=== PATIENT | male | born 1935 | race Caucasian/White ===

== ENCOUNTER 2017-09-14 09:00 | Outpatient (RCR) | payer SELFPAY ==
--- NOTE | 2017-07-21 12:37 | HP.PTEVAL_ITS ---
Patient's Visit Information IDA ASCENCIO is a 81 year old M referred to Physical Therapy by MD HARJIT Dye with a diagnosis of L CARLOS. Date of Evaluation: 07/21/17 Physical Therapist: Papi Kramer PT, - Visit Plan Frequency: 2-3x /Week Duration: 4-6 Weeks Plan: L LE strengthening, balance and proprio, core stab ex's, gait training, nustep, and HEP. CP for pain - Subjective Subjective: DOS: 01/2017. Pt reports he first had a L CARLOS in 1989. 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 Pt reports he had R CARLOS in the past as well. Pt notes his R hip is doing well, but his L hip continues to hurt. Pt notes he also notices a lack of balance and weakness that exists. Pt reports no Prior falls as a result of his hip surgery. Pt reports sleep diff secondary to pain. Pt reports he has stairs at home, and must negotiate them one step at a time. Pt reports he was doing better after the surgery, but the weather over the winter has limited his ability to ambulate much. Pt notes he has burning in his feet, but no other T or N. 3/10 pain at rest, 8/10 at worst (stairs) - Pain L hip Pain Intensity (Out of 10): 3 Pain Intensity Range: 8 - Objective Neuro: B LE sensation is WNL to light touch. B pat tendon reflex= 1/3. MMT: R LE is 5/5 throughout. L LE is 4-/5 throughout. Gait: Pt is able to ambulate 680 ' with cane until feeling fatigued in hips. Balance: No LOB while ambulating this date. - Goals Goal 1:: Decrease L hip pain x 50% to aid with sleep Goal Time Frame: 4-6 Weeks Goal 2:: Increase L hip strength x 1 grade to aid with stair negotiation Goal Time Frame: 4-6 Weeks Goal 3:: Pt will be able to ambulate greater than 1000 feet in order to increase his ability to ambulate around [place] with greater ease Goal Time Frame: 4-6 Weeks Goal 4:: I with HEP Goal Time Frame: 4-6 Weeks - Rehabilitation Potential Physical Therapy Diagnosis: L hip pain, weakness, and limited gait mobility secondary to L CARLOS Rehabilitation Potential: Good - Anticipated Interventions Patient/Client Instruction: Educate patient on: Condition, Plan of Care For the Purpose of:: To improve self management Therapeutic Exercise to Include: Strength training, Endurance training, Balance training, Gait and locomotor training, Dynamic Lumbar Stabilization For the Purpose of:: To decrease pain, To increase ROM, To improve muscle performance and motor function Cryotherapy (ice pack, ice massage): Yes For the Purpose of:: To decrease pain Thank you for the opportunity to evaluate your patient. For Medicare and Medicare HMO plans, please review the plan of care and approve it. It will need to be FAXED BACK to us at [phone] for Medicare purposes. Please let me know if there are questions or concerns regarding this plan of care. Physician Signature: Date:
--- NOTE | 2017-10-18 13:55 | HP.PT.NRP ---
HP - Discharge Summary (1) - Patient Information IDA ASCENCIO was seen in my office for initial evaluation on 07/21/17. The following Plan of Care was established for this patient: Initial Frequency: 2-3x /Week Initial Duration: 4-6 Weeks - Anticipated Interventions Patient/Client Instruction: Educate patient on: Condition, Plan of Care For the Purpose of:: To improve self management Therapeutic Exercise to Include: Strength training, Endurance training, Balance training, Gait and locomotor training, Dynamic Lumbar Stabilization For the Purpose of:: To decrease pain, To increase ROM, To improve muscle performance and motor function Cryotherapy (ice pack, ice massage): Yes For the Purpose of:: To decrease pain This patient was last seen in our office . Pertinent comments regarding their Physical therapy will appear below: Pt was last treated on the date of September 14, 2017 for his hip pain. Pt has not returned through todays date, and is therefore discontinued at this time. At this point I will be discontinuing this patient from physical therapy. I would be happy to see this patient again in the future if found appropriate by the physician. Thank you! Papi Kramer, PT,
== END 2017-09-14 19:00 | disposition home or self-care (01) ==
LOC: PT 09:00
PROVIDERS: Family Provider Family Medicine; PCP Family Medicine; Visit Provider Specialist
DX: Z96.642 Presence of left artificial hip joint (principal)
CPT/HCPCS: 97110; 97162; 97530